=== PATIENT | male | born 1960 | race Caucasian/White ===

== ENCOUNTER → 2017-11-09 10:39 | Outpatient (CLI) | payer OTHER, SELFPAY ==
--- NOTE | 2017-11-09 | DI.ECHO.S_ITS ---
[facility]---------+ [facility] +---------+ : : [address] : [address] : : : : [id number] : : : : Phone: [phone]+ Echocardiogram Report + + :Name: NOBLE WATERS Study Date: 11/09/2017 Height: 72 in : :[facility] Exam Location: [facility] Weight: 235 lb : : Gender: Male BSA: 2.3 m2 : :: 1960 Age: 57 yrs BP: 132/80 mmHg: :Reason For Study: CAD : : Performed By: Krzysztof Bojorquez : :Referring: SATHYA GIBBS : + + Interpretation Summary The left ventricle is normal in size. Left ventricular systolic function is normal without focal wall motion abnormalities. The ejection fraction is estimated to be 60-65%. There are no focal wall motion abnormalities. Compared to the prior exam, the inferior wall motion abnormality is improved. Assessment of diastolic parameters indicates a relaxation abnormality of the left ventricle, consistent with normal filling pressures. The right ventricle is normal in size and function. Pulmonary artery pressures cannot be estimated because of the lack of a measurable TR jet velocity. The left atrial size is normal. The right atrium is mildly dilated. There is no significant valvular heart disease. The ascending aorta is mildly enlarged. Procedure: A two-dimensional transthoracic echocardiogram with color flow and Doppler was performed. The study quality was technically good. Comparison is made with the echocardiogram of 04/29/17. The patient was in normal sinus rhythm during the exam. Left Ventricle: The left ventricle is normal in size. There is normal left ventricular wall thickness. Left ventricular systolic function is normal without focal wall motion abnormalities. The ejection fraction is estimated to be 60-65%. There are no focal wall motion abnormalities. Compared to the prior exam, the inferior wall motion abnormality is improved. Assessment of diastolic parameters indicates a relaxation abnormality of the left ventricle, consistent with normal filling pressures. Right Ventricle: The right ventricle is normal in size and function. Atria: The left atrial size is normal. The right atrium is mildly dilated. The interatrial septum is intact with no evidence for an atrial septal defect. Mitral Valve: The mitral valve is normal in structure and function. There is trace mitral regurgitation. Aortic Valve: The aortic valve is normal in structure and function. The aortic valve is trileaflet. The aortic valve opens well. No aortic regurgitation is present. Tricuspid Valve: The tricuspid valve is normal in structure and function. There is trace tricuspid regurgitation. Pulmonary artery pressures cannot be estimated because of the lack of a measurable TR jet velocity. Pulmonic Valve: The pulmonic valve is normal in structure and function. There is trace pulmonic regurgitation. There is no significant valvular heart disease. Great Vessels: The aortic root is normal size. The ascending aorta is mildly enlarged. The pulmonary artery is normal size. The IVC is of normal diameter and collapses greater than 50% with a sniff. This suggests a low right atrial pressure of 3 mm Hg. Pericardium/ Pleura There is no pericardial effusion. There is no pleural effusion. MMode/2D Measurements & Calculations LVIDd: 4.9 cm Ao root diam: 4.1 cm LVIDs: 3.0 cm Aortic Jxn: 3.1 cm FS: 39.6 % asc Aorta Diam: 3.9 cm EPSS: 0.60 cm Ao Arch Diam (Prox Trans): 3.0 cm IVSd: 1.1 cm LVPWd: 1.0 cm LV stanley. diameter/BSA (cm/m^2): 2.1 LV sys. diameter/BSA (cm/m^2): 1.3 LA dimension: 3.4 cm RA long axis: 5.0 cm LA A2 area: 20.3 cm2 RA area: 20.7 cm2 LA A4 area: 23.9 cm2 RA vol: 72.4 ml LA length (vol): 6.7 cm RA : 31.7 ml/m2 LA vol: 61.5 ml IVC diam: 2.0 cm LA vol index: 27.0 ml/m2 RVD1 (basal): 4.2 cm RVD2 (mid): 4.1 cm Doppler Measurements & Calculations Ao V2 max: 130.1 cm/sec LVOT Max Manuel: 111.7 cm/sec Ao V2 mean: 94.3 cm/sec LV V1 max P.0 mmHg Ao max P.8 mmHg LV V1 VTI: 25.6 cm Ao mean P.9 mmHg sev ratio: 0.85 Ao V2 VTI: 30.0 cm MV E max manuel: 53.0 cm/sec PA V2 max: 66.7 cm/sec MV A max manuel: 64.6 cm/sec PA V2 mean: 50.7 cm/sec MV E/A: 0.82 PA mean P.1 mmHg Med Peak E' Manuel: 5.6 cm/sec PA pr(Accel): 29.1 mmHg E/E' med: 9.5 PA Accel Time: 0.10 sec Lat Peak E' Manuel: 6.4 cm/sec E/E' lat: 8.3 E/e' average: 8.9 MV dec time: 0.27 sec Alycia Henrietta Armijo Manuel: 22.8 cm/sec Reading Physician:HERLINDA
== END ==
PROVIDERS: PCP Physician Assistant Medical; Visit Provider Internal Medicine Cardiovascular Disease
DX: I25.10 Atherosclerotic heart disease of native coronary artery without angina pectoris (principal)
CPT/HCPCS: 93306

== ENCOUNTER → 2017-12-09 06:59 | Outpatient (CLI) | payer OTHER, SELFPAY ==
--- NOTE | 2017-12-09 | DI.MRI.S_ITS ---
PROCEDURE: MR SHOULDER LT WO CON INDICATIONS: LEFT SHOULDER PAIN TECHNIQUE: Noncontrast oblique coronal T2 fast spin echo with fat saturation, oblique sagittal T1 spin echo and T2 fast spin echo with fat saturation, axial T1 spin echo and T2 fast spin echo with fat saturation through the shoulder. COMPARISON: [facility], MR, SHOULDER WITHOUT CONTRAST, 08/17/2013, 12:28. [facility], CR, XR SHOULDER 2+ VIEWS LEFT, 11/30/2017, 8:50. FINDINGS: Image quality: Excellent. Rotator cuff: Mild T2 signal lesion within the anterior, and mid supraspinatus tendon at the humeral surgical site is present, indicating tendinopathy. The supraspinatus, infraspinatus, and subscapularis tendons appear intact throughout. Sagittal images demonstrate no muscle atrophy. Bones and bursae: No bone marrow contusions nor acute fracture. There is chronic Hill-Sachs deformity of the humeral head, as before.. Moderate acromioclavicular joint degeneration. The acromion demonstrates conventional anatomy, without an os acromiale. No pathologic subacromial-subdeltoid or subcoracoid bursal fluid is present. Capsule and soft tissues: No change in anterosuperior glenoid labral tearing. The long head of the biceps tendon demonstrates normal location and morphology. The rotator interval appears normal, without fibrosis. The coracohumeral ligament is normal in thickness. IMPRESSION: 1. Supraspinatus tendinopathy. No evidence of rotator cuff tear. Resolution of previously seen subscapularis tear. 2. Acromioclavicular joint osteoarthritis. 3. Chronic Hill-Sachs deformity of the humeral head is unchanged, indicating remote anteroinferior shoulder dislocation. 4. No significant change in anterosuperior glenoid labral tearing. Dictated by: Elise Rodriguez M.D. on 12/09/2017 at 8:27 Approved by: Elise Rodriguez M.D. on 12/09/2017 at 8:31
== END ==
PROVIDERS: PCP Physician Assistant Medical; Visit Provider Family Medicine
DX: M25.512 Pain in left shoulder (principal); M19.012 Primary osteoarthritis, left shoulder; M24.812 Other specific joint derangements of left shoulder, not elsewhere classified; S43.432D Superior glenoid labrum lesion of left shoulder, subsequent encounter
CPT/HCPCS: 73221

== ENCOUNTER 2022-03-16 21:53 | Emergency (ER) | payer OTHER, SELFPAY ==
[2022-03-16 22:28] VITALS: BP 176/86; PULSE 117; RESP 20; TEMP 37.4; O2SAT 97; BMI 32.5
[2022-03-16 23:30] LABS: Influenza A - CEPHEID Flu A NEGATIVE (NEGATIVE); Influenza B - CEPHEID Flu B NEGATIVE (NEGATIVE); Respiratory Syncytial Virus Negative (Negative)
[2022-03-16 23:32] LABS: COVID-19 CEPHEID 4-PLEX PCR POSITIVE (Negative)
--- NOTE | 2022-03-17 01:00 | ED_ITS ---
HPI - General Adult General Chief complaint: Shortness of Breath/Dyspnea Stated complaint: positive covid, unable to breathe, talk Time Seen by Provider: 03/16/22 22:57 Source: patient and family () Mode of arrival: Ambulatory Limitations: no limitations History of Present Illness HPI narrative: Patient is a 61-year-old male who is here for evaluation of 5 days of COVID like symptoms to include body aches and cough and shortness of breath and fevers. Does not have any GI symptoms. Is having a headache. Tested positive for COVID a couple days ago. Continues to have symptoms. He is here because he states that he is just not getting any better. He also states he is having a sore throat. Related Data Allergies Allergy/AdvReac Type Severity Reaction Status Date / Time No Known Drug Allergies Allergy Verified 03/16/22 22:34 Review of Systems Constitutional Constitutional: Reports system reviewed and no additional complaints, except as documented ENT Ears, Nose, Mouth, and Throat: Reports system reviewed and no additional complaints, except as documented Cardiovascular Cardiovascular: Reports system reviewed and no additional complaints, except as documented Respiratory Respiratory: Reports system reviewed and no additional complaints, except as documented Gastrointestinal Gastrointestinal: Reports system reviewed and no additional complaints, except as documented Integumentary/Breasts Skin/Breast: Reports system reviewed and no additional complaints, except as documented Neurologic Neurologic: Reports system reviewed and no additional complaints, except as documented Hematologic/Lymphatic On Anticoagulants: No Patient History Social History Smoking Status: Never smoker Smoking Status: Never smoker alcohol intake frequency: holidays/special occasions only Substance Use Type: does not use Exam Initial Vital Signs Initial Vital Signs: Vital Signs Temperature 99.3 F 03/16/22 22:28 Pulse Rate 117 H 03/16/22 22:28 Respiratory Rate 20 03/16/22 22:28 Blood Pressure 176/86 H 03/16/22 22:28 Pulse Oximetry 97 03/16/22 22:28 Oxygen Delivery Method 03/16/22 22:28 Const General: cooperative and No ill appearing HENMT Head: normal to inspection and normocephalic Mouth: oral mucosae normal Throat: posterior oropharynx normal Resp Effort & Inspection: normal respiratory effort Auscultation: clear to auscultation bilaterally Cardio Rate: regular rate Rhythm: regular rhythm Skin General: no rashes or lesions noted Neuro General: patient alert, patient awake and moves all extremities Extrem General: capillary refill normal Course Orders Ordered: ED Orders 03/16/22 22:45 Covid-19 + FLU A/B + RSV - PCR Stat 03/16/22 23:45 Throat Culture Stat Vital Signs Vital signs: Vital Signs - 8 hr 03/16/22 22:28 03/17/22 01:09 Temperature 99.3 F Pulse Rate 117 H 98 H Respiratory Rate 20 20 Blood Pressure 176/86 H 165/84 H Pulse Oximetry 97 98 Oxygen Delivery Method Room Air Room Air Medical Decision Making Lab Data Labs: Lab Results 03/16/22 03/16/22 Range/Units 22:45 23:25 SARS-CoV-2 (PCR) Positive H (Negative) Influenza A (RT-PCR) Flu a negative (NEGATIVE) Influenza B (RT-PCR) Flu b negative (NEGATIVE) RSV (PCR) Negative (Negative) Group A Strep (PCR) Cancelled Point of Care Testing Rapid Strep A Negative Point of care testing: Point of Care Testing Rapid Strep A Negative MDM Narrative Medical decision making narrative: Patient is known to be COVID positive. Rapid strep was negative. No respiratory distress. Is afebrile. Is nontoxic appearing. Had a discussion with him regarding his symptoms. He is not a candidate for PACs low but given the amount of time that he is had symptoms. No indication for antibiotics. I discussed that his symptoms are well within the realm of normal for someone with COVID. His had symptoms as well but only for very short period of time. Had a discussion with him and his regarding his symptoms we did discuss return precautions. He expressed understanding and agreement. Discharge Plan Departure Patient Disposition: Home Clinical Impression: COVID-19 Instructions: DI for COVID-19 (Suspected or Confirmed ) Activity Restrictions/Additional Instructions: You Should increase your fluid intake. You can take Tylenol/ibuprofen for fe vers or body aches. Continue all of your medications as directed. Return to the emergency department for any worsening problems breathing. Referrals: Susan Feldman PA-C [Primary Care Provider] - Stand Alone Forms: Patient Portal/API
[2022-03-17 01:09] VITALS: BP 165/84; PULSE 98; RESP 20; O2SAT 98
== END 2022-03-17 01:10 | disposition home or self-care (01) ==
PROVIDERS: Emergency Provider Emergency Medicine; PCP Physician Assistant Medical
DX: U07.1 COVID-19 (principal)
CPT/HCPCS: 0241U; 87070; 87880; 99282